=== PATIENT | male | born 1955 | race Caucasian/White ===

== ENCOUNTER 2022-08-23 13:02 | Inpatient (IN) ==
[2022-08-23] MEDS ORDERED: Propofol 10 mg/ml 100 ML BTL 1,000 MG/100 ML BTL ONE (14:24)
[2022-08-23] MEDS ORDERED: Propofol 10 MG/ML 20 ML BTL IV PUSH ONE (14:26)
[2022-08-23] MEDS ORDERED: Norepinephrine 16MCG/ML BAGD5W 4,000 MCG/250 ML BAG IV ONE (14:26)
[2022-08-23] MEDS: Propofol 10 mg/ml 100 ML BTL 1,000 MG/100 ML BTL IV SCH ×2 (14:28→22:09)
[2022-08-23] MEDS: Norepinephrine 16MCG/ML BAGD5W 4,000 MCG/250 ML BAG IV SCH ×3 (14:30→22:07)
[2022-08-23 15:13] LABS: Hematocrit 38 % (42-52); Hemoglobin 12.8 g/dL (14.0-18.0); Mean Corpuscular HGB Conc 34 g/dL (31-36); Mean Corpuscular Hemoglobin 33 pg (27-31); Mean Corpuscular Volume 99 fL (80-94); Mean Platelet Volume 8.3 fL (7.4-10.4); Platelet Count 125 10^3/uL (150-450); Red Blood Count 3.84 10^6 /uL (4.18-5.48); Red Cell Distribution Width 13 % (10-15); White Blood Count 4.3 10^3/uL (3.5-10.8)
[2022-08-23] MEDS: Pantoprazole VIAL 40 MG VIAL IV SCH (15:15)
[2022-08-23] MEDS: Chlorhexidine MOUTHWASH 0.12% 15 ML UDC SWISH SPIT SCH ×3 (15:15→22:11)
[2022-08-23 15:23] LABS: INR 1.34 (0.88-1.18)
[2022-08-23 15:57] LABS: Albumin 2.8 g/dL (3.2-5.2); Calcium 7.6 mg/dL (8.6-10.3); Magnesium 1.3 mg/dL (1.9-2.7); Potassium 3.5 mmol/L (3.5-5.0); Total Bilirubin 0.8 mg/dL (0.2-1.0)
[2022-08-23 15:58] LABS: PCO2 Arterial 38 mmHg (35-45); PO2 Arterial 87 mmHg (80-100)
[2022-08-23] MEDS: fentaNYL 100 mcg/2 ml 50 MCG/ML VIAL IV SLOW PU PRN ×2 (15:59→22:12)
[2022-08-23 16:02] LABS: Creatinine, Serum 1.13 mg/dL (0.67-1.17); Globulin 2.7 g/dL (2-4); Phosphorus 1.3 mg/dL (2.5-5.0); Total Protein 5.5 g/dL (6.4-8.9); eGFR CKD-EPI 72.1 (>60)
[2022-08-23 16:34] LABS: ABS Lymphocytes 0.5 10^3/ul (1.0-4.8); ABS Monocytes 0.6 10^3/ul (0-0.8); ABS Neutrophils 3.2 10^3/ul (1.5-7.7); Eosinophil % 0.7 %; Nucleated Red Blood Cells % 0.1
[2022-08-23 16:42] LABS: TSH Ultra Thyroid Stim Horm 7.51 mcIU/mL (0.34-5.60)
[2022-08-23 16:46] LABS: Free T4 0.87 ng/dL (0.61-1.12)
[2022-08-23] MEDS ORDERED: Vancomycin 1,000 MG in NS 0.9% 250 ml 250 ML IVPB ONE (17:35)
[2022-08-23] MEDS: Lactated Ringers 1000 ml BAG 1,000 ML IV SCH (17:42)
[2022-08-23] MEDS ORDERED: Vancomycin per Pharmacy 1 EA NOTE FOLLOW UP SCH (18:00)
[2022-08-23] MEDS ORDERED: Meropenem 1 GM PREMIX(*) 1 GM/50 ML BAG IV SCH (18:00)
[2022-08-23] MEDS ORDERED: Vancomycin 1,500 MG in NS 0.9% 250 ml 250 ML IVPB ONE (18:30)
[2022-08-23] MEDS ORDERED: Magnesium Sulf 4 GM/100 ML IV 4,000 MG/100 ML BAG IVPB ONE (18:42)
[2022-08-23] MEDS: cefTRIAXone 1 gm/50 mL D5W 1 GM/50 ML BAG IV SCH (20:02)
[2022-08-23] MEDS: Enoxaparin 40 MG/0.4 ML SYR SUBCUT SCH (20:03)
[2022-08-23] MEDS ORDERED: Potassium Phosphate IV 15 MMOL in NS 0.9% 250 ml 250 ML IVPB ONE (20:25)
[2022-08-23] MEDS: NS 0.9% IVPB SCH (21:28)
[2022-08-23] MEDS: VALPROIC ACID IVPB SCH (21:28)
[2022-08-23] MEDS: NORMOSOL-R pH 7.4 1000 mL BAG 1,000 ML IV SCH (21:40)
[2022-08-24] MEDS: Norepinephrine 16MCG/ML BAGD5W 4,000 MCG/250 ML BAG IV SCH (00:18)
[2022-08-24] MEDS: Lactated Ringers 1000 ml BAG 1,000 ML IV SCH ×4 (00:20→22:30)
[2022-08-24] MEDS: VALPROIC ACID IVPB SCH ×4 (01:35→21:43)
[2022-08-24] MEDS: NS 0.9% IVPB SCH ×4 (01:35→21:43)
[2022-08-24] MEDS: Chlorhexidine MOUTHWASH 0.12% 15 ML UDC SWISH SPIT SCH ×6 (01:42→20:41)
[2022-08-24 02:07] LABS: Anion Gap 11 mmol/L (2-11); CO2 Carbon Dioxide 19 mmol/L (22-32); Calcium 7.4 mg/dL (8.6-10.3); Chloride 108 mmol/L (101-111); Magnesium 2.2 mg/dL (1.9-2.7); Potassium 4.5 mmol/L (3.5-5.0); Sodium 138 mmol/L (135-145)
[2022-08-24 02:13] LABS: Blood Urea Nitrogen 22 mg/dL (6-24); Glucose 152 mg/dL (70-100); eGFR CKD-EPI 83.5 (>60)
[2022-08-24 02:15] LABS: Phosphorus < 1.0 mg/dL (2.5-5.0)
[2022-08-24] MEDS: NORMOSOL-R pH 7.4 1000 mL BAG 1,000 ML IV SCH (02:26)
[2022-08-24 02:43] LABS: Urine Appearance Cloudy; Urine Bilirubin Negative (Negative); Urine Blood 2+ (Negative); Urine Color Yellow; Urine Glucose Negative (Negative); Urine Ketones Negative (Negative); Urine Nitrite Negative (Negative); Urine Protein Negative (Negative); Urine Urobilinogen Negative (Negative)
[2022-08-24 02:44] LABS: Urine Bacteria Absent (Absent); Urine Red Blood Cell 3+(>10/hpf) (Absent); Urine White Blood Cell Trace(0-5/hpf) (Absent)
[2022-08-24] MEDS: Norepinephrine *QUAD STRENGTH* 16 mg/250 mL NS per protocol IV SCH ×2 (02:45→11:45)
[2022-08-24] MEDS ORDERED: NORMOSOL-R pH 7.4 1000 mL BAG 1,000 ML IV SCH (03:00)
[2022-08-24 04:12] LABS: Hematocrit 37 % (42-52); Hemoglobin 12.4 g/dL (14.0-18.0); Mean Corpuscular HGB Conc 34 g/dL (31-36); Mean Corpuscular Hemoglobin 33 pg (27-31); Mean Corpuscular Volume 97 fL (80-94); Mean Platelet Volume 8.4 fL (7.4-10.4); Platelet Count 116 10^3/uL (150-450); Red Blood Count 3.78 10^6 /uL (4.18-5.48); Red Cell Distribution Width 14 % (10-15); White Blood Count 15.2 10^3/uL (3.5-10.8)
[2022-08-24 04:26] LABS: Calcium 7.4 mg/dL (8.6-10.3); Magnesium 2.2 mg/dL (1.9-2.7); Potassium 4.5 mmol/L (3.5-5.0)
[2022-08-24 04:32] LABS: Creatinine, Serum 0.96 mg/dL (0.67-1.17); eGFR CKD-EPI 87.7 (>60)
[2022-08-24] MEDS ORDERED: Hydrocortisone INJ 100 MG/2ML 2 ML VIAL IV ONE (04:51)
[2022-08-24 05:49] LABS: Phosphorus 1.3 mg/dL (2.5-5.0)
[2022-08-24] MEDS ORDERED: Sodium Phosphate IV 15 MMOL in NS 0.9% 250 ml 250 ML IV ONE (06:13)
[2022-08-24] MEDS ORDERED: PHENYLEPHRINE DRIP IVPREMIX 50 MG/250 ML BAG IV SCH (07:00)
[2022-08-24 07:41] LABS: PCO2 Arterial 29 mmHg (35-45); PO2 Arterial 78 mmHg (80-100)
[2022-08-24] MEDS: Vancomycin 1000 MG in NS 0.9% 250 ML IVPB SCH ×2 (07:44→20:42)
[2022-08-24] MEDS ORDERED: Aspirin EC 81 mg TAB.EC (enteric coated) SCH ×2 (09:00)
[2022-08-24] MEDS: fentaNYL 100 mcg/2 ml 50 MCG/ML VIAL IV SLOW PU PRN (09:28)
[2022-08-24] MEDS ORDERED: VASOPRESSIN IVPREMIX BTL 40 UNIT/100 ML BTL IV SCH (09:30)
[2022-08-24] MEDS: VASOPRESSIN IVPREMIX BTL 40 UNIT/100 ML BTL IV SCH (09:49)
[2022-08-24] MEDS: Propofol 10 mg/ml 100 ML BTL 1,000 MG/100 ML BTL IV SCH ×2 (10:13→17:41)
[2022-08-24] MEDS: Hydrocortisone INJ 100 MG/2ML 2 ML VIAL IV SCH ×2 (12:52→20:41)
[2022-08-24] MEDS: Pantoprazole VIAL 40 MG VIAL IV SCH (13:07)
[2022-08-24] MEDS: cefTRIAXone 1 gm/50 mL D5W 1 GM/50 ML BAG IV SCH (18:18)
[2022-08-24] MEDS: Thiamine 100 MG/ML 2 ml VIAL 500 MG in NS 0.9% 250 ml 250 ML IV SCH (18:31)
[2022-08-24] MEDS: Enoxaparin 40 MG/0.4 ML SYR SUBCUT SCH (20:41)
[2022-08-24 23:09] LABS: Calcium 7.2 mg/dL (8.6-10.3); Magnesium 1.8 mg/dL (1.9-2.7); Potassium 3.7 mmol/L (3.5-5.0)
[2022-08-24 23:15] LABS: Creatinine, Serum 0.76 mg/dL (0.67-1.17); Phosphorus 1.9 mg/dL (2.5-5.0); eGFR CKD-EPI 99.7 (>60)
[2022-08-25] MEDS ORDERED: Magnesium Sulfate IV 3 GM in NS 0.9% 100 ml BAG 100 ML IVPB ONE (00:05)
[2022-08-25] MEDS ORDERED: Potassium Phosphate IV 15 MMOL in NS 0.9% 250 ml 250 ML IVPB ONE (00:05)
[2022-08-25] MEDS: NS 0.9% IVPB SCH ×4 (00:10→20:49)
[2022-08-25] MEDS: VALPROIC ACID IVPB SCH ×4 (00:10→20:49)
[2022-08-25] MEDS: Thiamine 100 MG/ML 2 ml VIAL 500 MG in NS 0.9% 250 ml 250 ML IV SCH ×3 (00:10→17:15)
[2022-08-25] MEDS: Chlorhexidine MOUTHWASH 0.12% 15 ML UDC SWISH SPIT SCH ×6 (00:11→21:07)
[2022-08-25] MEDS: Lactated Ringers 1000 ml BAG 1,000 ML IV SCH (04:47)
[2022-08-25] MEDS: Hydrocortisone INJ 100 MG/2ML 2 ML VIAL IV SCH ×3 (04:48→21:08)
[2022-08-25] MEDS: Propofol 10 mg/ml 100 ML BTL 1,000 MG/100 ML BTL IV SCH ×3 (04:54→22:43)
[2022-08-25 05:06] LABS: Hematocrit 31 % (42-52); Hemoglobin 10.4 g/dL (14.0-18.0); Mean Corpuscular HGB Conc 33 g/dL (31-36); Mean Corpuscular Hemoglobin 32 pg (27-31); Mean Corpuscular Volume 97 fL (80-94); Mean Platelet Volume 8.6 fL (7.4-10.4); Platelet Count 83 10^3/uL (150-450); Red Cell Distribution Width 14 % (10-15); White Blood Count 16.9 10^3/uL (3.5-10.8)
[2022-08-25] MEDS: VASOPRESSIN IVPREMIX BTL 40 UNIT/100 ML BTL IV SCH ×2 (05:25→21:07)
[2022-08-25 05:36] LABS: ABS Eosinophils 0.1 10^3/ul (0-0.6); ABS Lymphocytes 0.5 10^3/ul (1.0-4.8); ABS Monocytes 0.9 10^3/ul (0-0.8); ABS Neutrophils 15.4 10^3/ul (1.5-7.7); Eosinophil % 0.4 %; Lymphocyte % 2.9 %
[2022-08-25 05:46] LABS: Calcium 7.2 mg/dL (8.6-10.3); Magnesium 2.4 mg/dL (1.9-2.7); Potassium 3.7 mmol/L (3.5-5.0)
[2022-08-25 05:51] LABS: Creatinine, Serum 0.7 mg/dL (0.67-1.17); Phosphorus 2.2 mg/dL (2.5-5.0); eGFR CKD-EPI 102.3 (>60)
[2022-08-25] MEDS ORDERED: Vancomycin Trough Check NOTE FOLLOW UP ONE (07:30)
[2022-08-25] MEDS ORDERED: Potassium Phosphate IV 5 MMOL in NS 0.9% 250 ml 250 ML IVPB ONE (08:00)
[2022-08-25] MEDS: Fluoxetine LIQ 20 MG/5 ML UDC FEED TUBE SCH (08:06)
[2022-08-25] MEDS ORDERED: Dexmedetomidine 1,000 MCG in NS 0.9% 250 ml 240 ML IV SCH (10:00)
[2022-08-25] MEDS: Vancomycin 1000 MG in NS 0.9% 250 ML IVPB SCH ×2 (10:26→20:49)
[2022-08-25] MEDS ORDERED: Albumin Human 5% 12.5 GM/250 ML BTL IV ONE (11:52)
[2022-08-25] MEDS ORDERED: Propofol 10 mg/ml 100 ML BTL 1,000 MG/100 ML BTL IV SCH (12:00)
[2022-08-25 15:16] LABS: Calcium 7.1 mg/dL (8.6-10.3); Potassium 3.8 mmol/L (3.5-5.0)
[2022-08-25 15:22] LABS: Creatinine, Serum 0.74 mg/dL (0.67-1.17); eGFR CKD-EPI 100.6 (>60)
[2022-08-25] MEDS: Pantoprazole VIAL 40 MG VIAL IV SCH (15:29)
[2022-08-25] MEDS ORDERED: Lactated Ringers 1000 ml BAG 500 ML IV ONE (17:00)
[2022-08-25] MEDS: cefTRIAXone 1 gm/50 mL D5W 1 GM/50 ML BAG IV SCH (20:49)
[2022-08-25] MEDS: Enoxaparin 40 MG/0.4 ML SYR SUBCUT SCH (21:07)
[2022-08-26] MEDS: Chlorhexidine MOUTHWASH 0.12% 15 ML UDC SWISH SPIT SCH ×6 (00:28→23:10)
[2022-08-26] MEDS: NS 0.9% IVPB SCH ×4 (00:28→20:34)
[2022-08-26] MEDS: VALPROIC ACID IVPB SCH ×4 (00:28→20:34)
[2022-08-26] MEDS: Thiamine 100 MG/ML 2 ml VIAL 500 MG in NS 0.9% 250 ml 250 ML IV SCH ×3 (00:28→17:05)
[2022-08-26] MEDS: Hydrocortisone INJ 100 MG/2ML 2 ML VIAL IV SCH ×2 (04:40→17:05)
[2022-08-26 05:10] LABS: ABS Lymphocytes 0.8 10^3/ul (1.0-4.8); ABS Monocytes 0.5 10^3/ul (0-0.8); ABS Neutrophils 16.1 10^3/ul (1.5-7.7); Eosinophil % 0.1 %; Hematocrit 30 % (42-52); Hemoglobin 10.2 g/dL (14.0-18.0); Lymphocyte % 4.7 %; Mean Corpuscular HGB Conc 34 g/dL (31-36); Mean Corpuscular Hemoglobin 33 pg (27-31); Mean Corpuscular Volume 97 fL (80-94); Mean Platelet Volume 8.6 fL (7.4-10.4); Platelet Count 77 10^3/uL (150-450); Red Cell Distribution Width 14 % (10-15); White Blood Count 17.5 10^3/uL (3.5-10.8)
[2022-08-26 05:13] LABS: INR 1.26 (0.88-1.18)
[2022-08-26 05:50] LABS: Albumin 2.6 g/dL (3.2-5.2); Albumin/Globulin Ratio 1.2 (1-3); Creatinine, Serum 0.81 mg/dL (0.67-1.17); Globulin 2.2 g/dL (2-4); Magnesium 2.4 mg/dL (1.9-2.7); Potassium 3.7 mmol/L (3.5-5.0); Total Bilirubin 0.7 mg/dL (0.2-1.0); Total Protein 4.8 g/dL (6.4-8.9); eGFR CKD-EPI 97.8 (>60)
[2022-08-26] MEDS ORDERED: Potassium Chloride LIQUID 20 MEQ/15 ML LIQUID PO ONE (06:30)
[2022-08-26] MEDS: Vancomycin 1000 MG in NS 0.9% 250 ML IVPB SCH ×2 (07:32→20:34)
[2022-08-26] MEDS: Fluoxetine LIQ 20 MG/5 ML UDC FEED TUBE SCH (09:07)
[2022-08-26] MEDS: Propofol 10 mg/ml 100 ML BTL 1,000 MG/100 ML BTL IV SCH ×2 (10:21→17:59)
[2022-08-26] MEDS: Azithromycin 500 mg/250 ml NS 500 MG/250 ML BAG IVPB SCH (11:45)
[2022-08-26] MEDS: metroNIDAZOLE IV 500 MG/100ML 500 MG/100 ML BAG IVPB SCH ×2 (11:52→18:02)
[2022-08-26] MEDS ORDERED: Acetylcysteine INHALATION SOL 200 MG/ML NEB.SOLN 10 ML INH ONE (12:12)
[2022-08-26] MEDS ORDERED: Hydrocortisone INJ 100 MG/2ML 2 ML VIAL IV SCH (13:00)
[2022-08-26] MEDS: fentaNYL 100 mcg/2 ml 50 MCG/ML VIAL IV SLOW PU PRN (13:12)
[2022-08-26] MEDS ORDERED: fentaNYL 100 mcg/2 ml 50 MCG/ML VIAL IV SLOW PU ONE (14:45)
[2022-08-26] MEDS: fentaNYL 100 mcg/2 ml 50 MCG/ML VIAL ONE ×2 (14:55→14:59)
[2022-08-26] MEDS: Pantoprazole VIAL 40 MG VIAL IV SCH (14:56)
[2022-08-26] MEDS ORDERED: Norepinephrine IV 16 MG in NS 0.9% 250 ml 234 ML IV SCH (15:28)
[2022-08-26] MEDS ORDERED: Furosemide 40 mg/4 ml IV VIAL IV ONE (16:15)
[2022-08-26 17:46] LABS: Urine Appearance Cloudy; Urine Bilirubin Negative (Negative); Urine Blood 2+ (Negative); Urine Color Yellow; Urine Glucose Negative (Negative); Urine Ketones Negative (Negative); Urine Nitrite Negative (Negative); Urine Protein Negative (Negative); Urine Specific Gravity 1.013 (1.002-1.030); Urine Urobilinogen Negative (Negative)
[2022-08-26 17:51] LABS: Urine Bacteria Absent (Absent); Urine Red Blood Cell 2+(6-10/hpf) (Absent); Urine Squamous Epithelial Cell Present (Absent); Urine White Blood Cell 1+(6-10/hpf) (Absent)
[2022-08-26] MEDS: cefTRIAXone 1 gm/50 mL D5W 1 GM/50 ML BAG IV SCH (20:33)
[2022-08-26] MEDS: Enoxaparin 40 MG/0.4 ML SYR SUBCUT SCH (20:34)
[2022-08-27 01:03] LABS: Creatinine, Serum 0.85 mg/dL (0.67-1.17); Magnesium 2.2 mg/dL (1.9-2.7); Potassium 3.1 mmol/L (3.5-5.0); eGFR CKD-EPI 96.4 (>60)
[2022-08-27] MEDS: Propofol 10 mg/ml 100 ML BTL 1,000 MG/100 ML BTL IV SCH ×5 (01:19→21:25)
[2022-08-27] MEDS: NS 0.9% IVPB SCH ×2 (01:54→12:39)
[2022-08-27] MEDS: Thiamine 100 MG/ML 2 ml VIAL 500 MG in NS 0.9% 250 ml 250 ML IV SCH ×2 (01:54→10:58)
[2022-08-27] MEDS: VALPROIC ACID IVPB SCH ×2 (01:54→12:39)
[2022-08-27] MEDS: Chlorhexidine MOUTHWASH 0.12% 15 ML UDC SWISH SPIT SCH ×6 (02:47→21:29)
[2022-08-27] MEDS ORDERED: Potassium Chloride LIQUID 20 MEQ/15 ML LIQUID PEG TUBE ONE ×2 (03:51→22:06)
[2022-08-27] MEDS: metroNIDAZOLE IV 500 MG/100ML 500 MG/100 ML BAG IVPB SCH ×3 (03:57→17:36)
[2022-08-27] MEDS ORDERED: Bumetanide IV 0.25 MG/ML 4 ml VIAL (1 mg) SLOW PUSH ONE ×2 (04:00→23:00)
[2022-08-27] MEDS: Hydrocortisone INJ 100 MG/2ML 2 ML VIAL IV SCH (04:22)
[2022-08-27] MEDS: KCL 20 MEQ/100 ML IVPREMIX 20 MEQ/100 ML BAG IV SCH ×3 (04:22→22:26)
[2022-08-27 04:29] LABS: Hematocrit 30 % (42-52); Mean Corpuscular HGB Conc 33 g/dL (31-36); Mean Corpuscular Hemoglobin 32 pg (27-31); Mean Corpuscular Volume 98 fL (80-94); Mean Platelet Volume 8.6 fL (7.4-10.4); Platelet Count 76 10^3/uL (150-450); Red Blood Count 3.12 10^6 /uL (4.18-5.48); Red Cell Distribution Width 14 % (10-15); White Blood Count 16.8 10^3/uL (3.5-10.8)
[2022-08-27 04:58] LABS: Dohle Bodies Present; RBC Morphology Normal (Normal); Smudge Cells Present
[2022-08-27 04:59] LABS: ABS Lymphocytes 0.6 10^3/ul (1.0-4.8); ABS Monocytes 0.9 10^3/ul (0-0.8); ABS Neutrophils 15.2 10^3/ul (1.5-7.7); Lymphocyte % 3.7 %
[2022-08-27 05:17] LABS: Calcium 6.8 mg/dL (8.6-10.3); Creatinine, Serum 0.81 mg/dL (0.67-1.17); Magnesium 2.2 mg/dL (1.9-2.7); Potassium 3.2 mmol/L (3.5-5.0); eGFR CKD-EPI 97.8 (>60)
[2022-08-27] MEDS: fentaNYL 100 mcg/2 ml 50 MCG/ML VIAL IV SLOW PU PRN ×2 (05:23→21:44)
[2022-08-27] MEDS ORDERED: Vancomycin Trough Check NOTE FOLLOW UP ONE (07:30)
[2022-08-27] MEDS: Fluoxetine LIQ 20 MG/5 ML UDC FEED TUBE SCH (09:19)
[2022-08-27] MEDS: Valproic Acid LIQ 250 MG/5 ML UDC PO SCH ×3 (09:20→21:04)
[2022-08-27] MEDS ORDERED: Furosemide 40 mg/4 ml IV VIAL IV SLOW PU ONE (09:27)
[2022-08-27] MEDS: Azithromycin 500 mg/250 ml NS 500 MG/250 ML BAG IVPB SCH (09:37)
[2022-08-27] MEDS ORDERED: Rocuronium 50 mg VIAL 10 mg/ml 5 ml VIAL (50 mg) ONE (09:53)
[2022-08-27] MEDS: Potassium Chloride LIQUID 20 MEQ/15 ML LIQUID PO SCH ×2 (10:44→13:14)
[2022-08-27 11:05] LABS: Albumin 2.5 g/dL (3.2-5.2); Albumin/Globulin Ratio 1.1 (1-3); Calcium 6.6 mg/dL (8.6-10.3); Creatinine, Serum 0.82 mg/dL (0.67-1.17); Globulin 2.2 g/dL (2-4); Potassium 3.4 mmol/L (3.5-5.0); Total Bilirubin 0.5 mg/dL (0.2-1.0); Total Protein 4.7 g/dL (6.4-8.9); eGFR CKD-EPI 97.5 (>60)
[2022-08-27] MEDS: Vancomycin 1000 MG in NS 0.9% 250 ML IVPB SCH (12:39)
[2022-08-27 13:06] LABS: PCO2 Arterial 45 mmHg (35-45)
[2022-08-27 13:24] LABS: PO2 Arterial 59 mmHg (80-100)
[2022-08-27 15:02] LABS: PCO2 Arterial 35 mmHg (35-45); PO2 Arterial 94 mmHg (80-100)
[2022-08-27] MEDS: Pantoprazole VIAL 40 MG VIAL IV SCH (15:15)
[2022-08-27 18:43] LABS: PCO2 Arterial 42 mmHg (35-45); PO2 Arterial 62 mmHg (80-100)
[2022-08-27 19:52] LABS: Creatinine, Serum 0.82 mg/dL (0.67-1.17); eGFR CKD-EPI 97.5 (>60)
[2022-08-27] MEDS: cefTRIAXone 1 gm/50 mL D5W 1 GM/50 ML BAG IV SCH (20:24)
[2022-08-27] MEDS: Enoxaparin 40 MG/0.4 ML SYR SUBCUT SCH ×2 (20:28→21:17)
[2022-08-27 22:14] LABS: PCO2 Arterial 45 mmHg (35-45); PO2 Arterial 65 mmHg (80-100)
[2022-08-27 22:22] LABS: Calcium 6.9 mg/dL (8.6-10.3); Potassium 2.9 mmol/L (3.5-5.0)
[2022-08-27 22:28] LABS: Creatinine, Serum 0.78 mg/dL (0.67-1.17)
[2022-08-27] MEDS ORDERED: Bumetanide IV 10 MG in Premix IV 0 ML IV SCH (23:00)
[2022-08-28] MEDS: KCL 20 MEQ/100 ML IVPREMIX 20 MEQ/100 ML BAG IV SCH (00:36)
[2022-08-28] MEDS ORDERED: Potassium Chloride LIQUID 20 MEQ/15 ML LIQUID PO ONE (00:39)
[2022-08-28 00:50] LABS: PCO2 Arterial 47 mmHg (35-45); PO2 Arterial 76 mmHg (80-100)
[2022-08-28] MEDS: Propofol 10 mg/ml 100 ML BTL 1,000 MG/100 ML BTL IV SCH ×5 (01:06→22:05)
[2022-08-28] MEDS ORDERED: Bumetanide IV 10 MG in Premix IV 0 ML IV SCH ×2 (01:21→01:24)
[2022-08-28] MEDS: Chlorhexidine MOUTHWASH 0.12% 15 ML UDC SWISH SPIT SCH ×6 (01:51→20:33)
[2022-08-28] MEDS ORDERED: Bumetanide IV 0.25 MG/ML 4 ml VIAL (1 mg) SLOW PUSH ONE ×2 (02:00→09:34)
[2022-08-28] MEDS: Valproic Acid LIQ 250 MG/5 ML UDC PO SCH ×4 (02:58→20:30)
[2022-08-28] MEDS: metroNIDAZOLE IV 500 MG/100ML 500 MG/100 ML BAG IVPB SCH ×3 (03:08→18:25)
[2022-08-28 03:31] LABS: PCO2 Arterial 50 mmHg (35-45); PO2 Arterial 78 mmHg (80-100)
[2022-08-28 03:46] LABS: Hematocrit 37 % (42-52); Hemoglobin 12.8 g/dL (14.0-18.0); Mean Corpuscular HGB Conc 35 g/dL (31-36); Mean Corpuscular Hemoglobin 34 pg (27-31); Mean Corpuscular Volume 97 fL (80-94); Mean Platelet Volume 8.3 fL (7.4-10.4); Platelet Count 77 10^3/uL (150-450); Red Blood Count 3.79 10^6 /uL (4.18-5.48); Red Cell Distribution Width 13 % (10-15); White Blood Count 9.8 10^3/uL (3.5-10.8)
[2022-08-28 04:21] LABS: Calcium 7.5 mg/dL (8.6-10.3); Potassium 4.6 mmol/L (3.5-5.0)
[2022-08-28] MEDS: Artificial Tear OPHTH.OINT 3.5 GM BOTH EYES PRN (04:26)
[2022-08-28 04:35] LABS: Creatinine, Serum 0.79 mg/dL (0.67-1.17); eGFR CKD-EPI 98.6 (>60)
[2022-08-28] MEDS: Norepinephrine 16MCG/ML BAGD5W 4,000 MCG/250 ML BAG IV SCH ×2 (04:45→23:08)
[2022-08-28] MEDS ORDERED: Norepinephrine 16MCG/ML BAGD5W 4,000 MCG/250 ML BAG IV ONE ×2 (04:46→04:47)
[2022-08-28] MEDS ORDERED: fentaNYL 100 mcg/2 ml 50 MCG/ML VIAL IV SLOW PU ONE (05:14)
[2022-08-28 05:16] LABS: ABS Nucleated RBC 0.2 10^3/ul; Nucleated Red Blood Cells % 1.6
[2022-08-28] MEDS: fentaNYL 100 mcg/2 ml 50 MCG/ML VIAL ONE ×2 (05:25→05:27)
[2022-08-28 05:37] LABS: RBC Morphology Normal (Normal)
[2022-08-28 05:39] LABS: Dohle Bodies Present; Smudge Cells Present
[2022-08-28] MEDS ORDERED: Norepinephrine 16MCG/ML BAGD5W 4,000 MCG/250 ML BAG IV SCH (06:00)
[2022-08-28 06:29] LABS: PCO2 Arterial 51 mmHg (35-45); PO2 Arterial 102 mmHg (80-100)
[2022-08-28 07:16] LABS: Anion Gap 8 mmol/L (2-11); Blood Urea Nitrogen 25 mg/dL (6-24); CO2 Carbon Dioxide 33 mmol/L (22-32); Calcium 7.2 mg/dL (8.6-10.3); Chloride 104 mmol/L (101-111); Creatinine, Serum 0.79 mg/dL (0.67-1.17); Glucose 110 mg/dL (70-100); Sodium 145 mmol/L (135-145); eGFR CKD-EPI 98.6 (>60)
[2022-08-28] MEDS: Fluoxetine LIQ 20 MG/5 ML UDC FEED TUBE SCH (07:50)
[2022-08-28 08:43] LABS: Potassium, Whole Blood 3.5 mmol/L (3.4-4.5)
[2022-08-28] MEDS: Potassium Chloride LIQUID 20 MEQ/15 ML LIQUID PO SCH ×2 (09:57→13:33)
[2022-08-28] MEDS ORDERED: Piperacillin/Tazobac ADVAN 3.375 GM in NS 0.9% 100 ml BAG 100 ML IV SCH (10:00)
[2022-08-28] MEDS: Cefepime 1 GM in Dextrose 1 GM/50 ML BAG IV SCH ×2 (11:02→20:34)
[2022-08-28] MEDS: fentaNYL 100 mcg/2 ml 50 MCG/ML VIAL IV SLOW PU PRN ×3 (12:21→22:12)
[2022-08-28] MEDS: Azithromycin 500 mg/250 ml NS 500 MG/250 ML BAG IVPB SCH (12:24)
[2022-08-28 12:48] LABS: PCO2 Arterial 48 mmHg (35-45); PO2 Arterial 77 mmHg (80-100)
[2022-08-28] MEDS: Pantoprazole VIAL 40 MG VIAL IV SCH (15:09)
[2022-08-28 16:38] LABS: PCO2 Arterial 62 mmHg (35-45); PO2 Arterial 124 mmHg (80-100)
[2022-08-28] MEDS ORDERED: Dextrose 50% Syringe 50 ml 25 GM/50 ML SYRINGE IV PUSH PRN (17:05)
[2022-08-28 17:11] LABS: Blood Urea Nitrogen 27 mg/dL (6-24); CO2 Carbon Dioxide 37 mmol/L (22-32); Calcium 7.3 mg/dL (8.6-10.3); Chloride 99 mmol/L (101-111); Creatinine, Serum 0.92 mg/dL (0.67-1.17); Glucose 216 mg/dL (70-100); Sodium 142 mmol/L (135-145); eGFR CKD-EPI 92.3 (>60)
[2022-08-28 17:22] LABS: Anion Gap 6 mmol/L (2-11)
[2022-08-28 18:03] LABS: Potassium, Whole Blood 4.2 mmol/L (3.4-4.5)
[2022-08-28 20:27] LABS: ALT 33 U/L (7-52); Albumin 2.6 g/dL (3.2-5.2); Albumin/Globulin Ratio 0.9 (1-3); Alkaline Phosphatase 57 U/L (35-149); Cholesterol 111 mg/dL; Globulin 2.8 g/dL (2-4); HDL Cholesterol 9.9 mg/dL; Total Protein 5.4 g/dL (6.4-8.9); Triglycerides 700 mg/dL
[2022-08-28] MEDS: Enoxaparin 40 MG/0.4 ML SYR SUBCUT SCH (20:33)
[2022-08-28 20:42] LABS: LDL Cholesterol Direct 46 mg/dL
[2022-08-28] MEDS ORDERED: Midazolam IV for DRIP 100 MG in NS 0.9% IV SCH (21:45)
[2022-08-28 21:48] LABS: Lipase 35 U/L (11.0-82.0)
[2022-08-28] MEDS ORDERED: Midazolam 2 mg/2 ml VIAL 1 mg/ml 2 ml VIAL (2 mg) IV SLOW PU PRN (21:51)
[2022-08-28] MEDS ORDERED: Midazolam 50 MG PREMIX IV DRIP 50 ML IV SCH (22:00)
[2022-08-28] MEDS ORDERED: fentaNYL INFUSION 50 mcg/mL VL 2,500 MCG/50 ML VIAL IV SCH (22:00)
[2022-08-28] MEDS: Dexmedetomidine 1,000 MCG in NS 0.9% 250 ml 240 ML IV SCH (22:10)
[2022-08-28 22:37] LABS: Magnesium 1.9 mg/dL (1.9-2.7)
[2022-08-29] MEDS ORDERED: Magnesium Sulfate 2 gm BAG 2 GM/50 ML BAG IVPB ONE (00:31)
[2022-08-29] MEDS: Chlorhexidine MOUTHWASH 0.12% 15 ML UDC SWISH SPIT SCH ×6 (02:21→21:35)
[2022-08-29] MEDS: Valproic Acid LIQ 250 MG/5 ML UDC PO SCH ×4 (02:21→20:34)
[2022-08-29] MEDS: metroNIDAZOLE IV 500 MG/100ML 500 MG/100 ML BAG IVPB SCH ×3 (02:25→17:32)
[2022-08-29 02:40] LABS: High Sensitivity Troponin 1 Hr 19 pg/mL (<20)
[2022-08-29 05:44] LABS: Hematocrit 30 % (42-52); Hemoglobin 10.1 g/dL (14.0-18.0); Mean Corpuscular HGB Conc 33 g/dL (31-36); Mean Corpuscular Hemoglobin 33 pg (27-31); Mean Corpuscular Volume 98 fL (80-94); Mean Platelet Volume 8.6 fL (7.4-10.4); Platelet Count 89 10^3/uL (150-450); Red Blood Count 3.09 10^6 /uL (4.18-5.48); Red Cell Distribution Width 14 % (10-15); White Blood Count 10.2 10^3/uL (3.5-10.8)
[2022-08-29 05:54] LABS: Creatinine, Serum 0.79 mg/dL (0.67-1.17); Magnesium 2.5 mg/dL (1.9-2.7); Potassium 3.5 mmol/L (3.5-5.0); eGFR CKD-EPI 98.6 (>60)
[2022-08-29 05:58] LABS: ABS Eosinophils 0.2 10^3/ul (0-0.6); ABS Monocytes 0.4 10^3/ul (0-0.8); ABS Neutrophils 8.7 10^3/ul (1.5-7.7); Eosinophil % 2.2 %; Lymphocyte % 9.3 %; Nucleated Red Blood Cells % 0.2
[2022-08-29] MEDS ORDERED: Potassium Chloride LIQUID 20 MEQ/15 ML LIQUID PO ONE (06:33)
[2022-08-29] MEDS ORDERED: KCL 20 MEQ/100 ML IVPREMIX 20 MEQ/100 ML BAG IV ONE (06:33)
[2022-08-29] MEDS: fentaNYL 100 mcg/2 ml 50 MCG/ML VIAL IV SLOW PU PRN ×2 (07:16→08:45)
[2022-08-29] MEDS: Cefepime 1 GM in Dextrose 1 GM/50 ML BAG IV SCH ×2 (07:25→21:36)
[2022-08-29] MEDS: Fluoxetine LIQ 20 MG/5 ML UDC FEED TUBE SCH (07:28)
[2022-08-29] MEDS: Azithromycin 500 mg/250 ml NS 500 MG/250 ML BAG IVPB SCH (08:14)
[2022-08-29 10:07] LABS: PCO2 Arterial 48 mmHg (35-45); PO2 Arterial 88 mmHg (80-100)
[2022-08-29] MEDS ORDERED: Furosemide 40 mg/4 ml IV VIAL IV ONE (11:20)
[2022-08-29 14:01] LABS: PCO2 Arterial 49 mmHg (35-45); PO2 Arterial 138 mmHg (80-100)
[2022-08-29] MEDS: Pantoprazole VIAL 40 MG VIAL IV SCH (14:17)
[2022-08-29 18:09] LABS: PCO2 Arterial 49 mmHg (35-45); PO2 Arterial 100 mmHg (80-100)
[2022-08-29 18:30] LABS: Calcium 7.3 mg/dL (8.6-10.3); Creatinine, Serum 0.81 mg/dL (0.67-1.17); Potassium 4.1 mmol/L (3.5-5.0); eGFR CKD-EPI 97.8 (>60)
[2022-08-29] MEDS: Dexmedetomidine 1,000 MCG in NS 0.9% 250 ml 240 ML IV SCH (21:35)
[2022-08-29] MEDS: Enoxaparin 40 MG/0.4 ML SYR SUBCUT SCH (21:36)
[2022-08-30] MEDS: Valproic Acid LIQ 250 MG/5 ML UDC PO SCH ×4 (01:41→21:20)
[2022-08-30] MEDS: Chlorhexidine MOUTHWASH 0.12% 15 ML UDC SWISH SPIT SCH ×6 (01:41→21:21)
[2022-08-30] MEDS: metroNIDAZOLE IV 500 MG/100ML 500 MG/100 ML BAG IVPB SCH (02:51)
[2022-08-30 05:38] LABS: Hematocrit 31 % (42-52); Hemoglobin 10.3 g/dL (14.0-18.0); Mean Corpuscular HGB Conc 33 g/dL (31-36); Mean Corpuscular Hemoglobin 33 pg (27-31); Mean Corpuscular Volume 99 fL (80-94); Mean Platelet Volume 8.4 fL (7.4-10.4); Platelet Count 102 10^3/uL (150-450); Red Blood Count 3.17 10^6 /uL (4.18-5.48); Red Cell Distribution Width 14 % (10-15)
[2022-08-30 06:26] LABS: Calcium 7.3 mg/dL (8.6-10.3); Creatinine, Serum 0.76 mg/dL (0.67-1.17); Magnesium 2.2 mg/dL (1.9-2.7); Potassium 3.7 mmol/L (3.5-5.0); eGFR CKD-EPI 99.7 (>60)
[2022-08-30 06:36] LABS: RBC Morphology Normal (Normal)
[2022-08-30] MEDS ORDERED: Potassium Chloride LIQUID 20 MEQ/15 ML LIQUID PEG TUBE ONE (07:12)
[2022-08-30] MEDS ORDERED: Potassium Chloride LIQUID 20 MEQ/15 ML LIQUID PO ONE (07:12)
[2022-08-30 07:37] LABS: ABS Eosinophils 0.2 10^3/ul (0-0.6); ABS Lymphocytes 1.4 10^3/ul (1.0-4.8); ABS Monocytes 0.6 10^3/ul (0-0.8); ABS Neutrophils 7.8 10^3/ul (1.5-7.7); Lymphocyte % 14.5 %
[2022-08-30] MEDS: fentaNYL 100 mcg/2 ml 50 MCG/ML VIAL IV SLOW PU PRN ×4 (08:02→17:31)
[2022-08-30] MEDS: Cefepime 1 GM in Dextrose 1 GM/50 ML BAG IV SCH ×2 (08:02→21:21)
[2022-08-30] MEDS: Multivitamins ADULT w/MIN LIQ 15 ML UDC PO SCH (08:04)
[2022-08-30] MEDS: Fluoxetine LIQ 20 MG/5 ML UDC FEED TUBE SCH (08:04)
[2022-08-30] MEDS ORDERED: Lidocaine 1% MPF 5 ML VIAL INJ ONE (08:40)
[2022-08-30 08:42] LABS: PCO2 Arterial 51 mmHg (35-45); PO2 Arterial 118 mmHg (80-100)
[2022-08-30] MEDS: Artificial Tear OPHTH.OINT 3.5 GM BOTH EYES PRN (08:59)
[2022-08-30] MEDS ORDERED: Lactated Ringers 1000 ml BAG 1,000 ML IV SCH (09:00)
[2022-08-30] MEDS ORDERED: Lactated Ringers 1000 ml BAG 500 ML IV SCH (09:00)
[2022-08-30 13:07] LABS: PCO2 Arterial 52 mmHg (35-45); PO2 Arterial 107 mmHg (80-100)
[2022-08-30] MEDS: Pantoprazole VIAL 40 MG VIAL IV SCH (13:34)
[2022-08-30 16:51] LABS: PCO2 Arterial 47 mmHg (35-45); PO2 Arterial 69 mmHg (80-100)
[2022-08-30] MEDS: Dexmedetomidine 1,000 MCG in NS 0.9% 250 ml 240 ML IV SCH (21:00)
[2022-08-30] MEDS: Enoxaparin 40 MG/0.4 ML SYR SUBCUT SCH (21:20)
[2022-08-31] MEDS: Chlorhexidine MOUTHWASH 0.12% 15 ML UDC SWISH SPIT SCH ×4 (02:00→14:20)
[2022-08-31] MEDS: Valproic Acid LIQ 250 MG/5 ML UDC PO SCH ×4 (02:00→20:10)
[2022-08-31 04:57] LABS: Hematocrit 32 % (42-52); Hemoglobin 10.8 g/dL (14.0-18.0); Mean Corpuscular HGB Conc 34 g/dL (31-36); Mean Corpuscular Hemoglobin 33 pg (27-31); Mean Corpuscular Volume 97 fL (80-94); Mean Platelet Volume 8.2 fL (7.4-10.4); Platelet Count 128 10^3/uL (150-450); Red Blood Count 3.26 10^6 /uL (4.18-5.48); Red Cell Distribution Width 14 % (10-15); White Blood Count 10.6 10^3/uL (3.5-10.8)
[2022-08-31 05:26] LABS: Calcium 7.5 mg/dL (8.6-10.3); Creatinine, Serum 0.64 mg/dL (0.67-1.17); Phosphorus 2.2 mg/dL (2.5-5.0); Potassium 4.2 mmol/L (3.5-5.0); eGFR CKD-EPI 105.1 (>60)
[2022-08-31 05:35] LABS: ABS Basophils 0.1 10^3/ul (0-0.2); ABS Eosinophils 0.1 10^3/ul (0-0.6); ABS Lymphocytes 1.6 10^3/ul (1.0-4.8); ABS Monocytes 0.8 10^3/ul (0-0.8); Eosinophil % 1.2 %; Lymphocyte % 15.1 %; Nucleated Red Blood Cells % 0.1
[2022-08-31] MEDS ORDERED: hydrALAZINE 20 mg/ml 1 ML Vial IV IV SLOW PU PRN (05:39)
[2022-08-31] MEDS ORDERED: hydrALAZINE 20 mg/ml 1 ML Vial IV ONE (05:43)
[2022-08-31] MEDS ORDERED: Lactated Ringers 1000 ml BAG 500 ML IV ONE (06:37)
[2022-08-31] MEDS: Fluoxetine LIQ 20 MG/5 ML UDC FEED TUBE SCH (08:02)
[2022-08-31] MEDS: Cefepime 1 GM in Dextrose 1 GM/50 ML BAG IV SCH ×2 (08:02→20:36)
[2022-08-31] MEDS: Multivitamins ADULT w/MIN LIQ 15 ML UDC PO SCH (08:02)
[2022-08-31 09:07] LABS: PCO2 Arterial 41 mmHg (35-45); PO2 Arterial 65 mmHg (80-100)
[2022-08-31] MEDS ORDERED: Furosemide 20 mg/2 ml IV VIAL IV ONE (09:17)
[2022-08-31] MEDS ORDERED: Norepinephrine 16MCG/ML BAGD5W 4,000 MCG/250 ML BAG IV ONE (09:27)
[2022-08-31] MEDS: fentaNYL 100 mcg/2 ml 50 MCG/ML VIAL IV SLOW PU PRN ×2 (09:37→10:38)
[2022-08-31] MEDS ORDERED: Bumetanide IV 0.25 MG/ML 4 ml VIAL (1 mg) SLOW PUSH ONE (10:00)
[2022-08-31] MEDS ORDERED: Norepinephrine 16MCG/ML BAGD5W 4,000 MCG/250 ML BAG IV SCH (10:00)
[2022-08-31] MEDS ORDERED: Dexmedetomidine 200 mcg/2 ml 2 ml VIAL (200 mcg) ONE (11:45)
[2022-08-31] MEDS ORDERED: Dexmedetomidine 1,000 MCG in NS 0.9% 250 ml 240 ML IV SCH (12:00)
[2022-08-31 14:19] LABS: PCO2 Arterial 50 mmHg (35-45); PO2 Arterial 148 mmHg (80-100)
[2022-08-31] MEDS: Pantoprazole VIAL 40 MG VIAL IV SCH (14:20)
[2022-08-31] MEDS: Bacitracin OINTMENT TUBE TOPICAL SCH (16:51)
[2022-08-31] MEDS: Enoxaparin 40 MG/0.4 ML SYR SUBCUT SCH (20:11)
[2022-08-31 20:42] LABS: Calcium 8.2 mg/dL (8.6-10.3); Creatinine, Serum 0.78 mg/dL (0.67-1.17); Phosphorus 2.9 mg/dL (2.5-5.0); Potassium 3.9 mmol/L (3.5-5.0)
[2022-08-31] MEDS ORDERED: Furosemide 40 mg/4 ml IV VIAL IV SLOW PU ONE (23:24)
[2022-08-31] MEDS: Saline FLUSH-CENTRAL 10 ML SYRINGE CENT\\PICC SCH (23:40)
[2022-09-01] MEDS: Valproic Acid LIQ 250 MG/5 ML UDC PO SCH ×4 (03:11→20:35)
[2022-09-01] MEDS: Acetaminophen IV 1 GM/100ML 1,000 MG/100 ML BAG IV PRN (03:11)
[2022-09-01 04:43] LABS: Hematocrit 33 % (42-52); Hemoglobin 11.3 g/dL (14.0-18.0); Mean Corpuscular HGB Conc 35 g/dL (31-36); Mean Corpuscular Hemoglobin 33 pg (27-31); Mean Corpuscular Volume 95 fL (80-94); Mean Platelet Volume 7.7 fL (7.4-10.4); Platelet Count 148 10^3/uL (150-450); Red Blood Count 3.44 10^6 /uL (4.18-5.48); Red Cell Distribution Width 14 % (10-15); White Blood Count 14.3 10^3/uL (3.5-10.8)
[2022-09-01 05:18] LABS: Calcium 7.9 mg/dL (8.6-10.3); Creatinine, Serum 0.8 mg/dL (0.67-1.17); Magnesium 1.9 mg/dL (1.9-2.7); Potassium 3.2 mmol/L (3.5-5.0); eGFR CKD-EPI 98.2 (>60)
[2022-09-01 05:53] LABS: ABS Eosinophils 0.1 10^3/ul (0-0.6); ABS Lymphocytes 1.7 10^3/ul (1.0-4.8); ABS Monocytes 0.6 10^3/ul (0-0.8); ABS Neutrophils 11.8 10^3/ul (1.5-7.7); Lymphocyte % 11.7 %
[2022-09-01] MEDS ORDERED: KCL 20 MEQ/100 ML IVPREMIX 20 MEQ/100 ML BAG IV ONE (05:56)
[2022-09-01] MEDS ORDERED: Potassium Chloride LIQUID 20 MEQ/15 ML LIQUID PO ONE (05:56)
[2022-09-01] MEDS: Bacitracin OINTMENT TUBE TOPICAL SCH (08:30)
[2022-09-01] MEDS: Multivitamins ADULT w/MIN LIQ 15 ML UDC PO SCH (08:30)
[2022-09-01] MEDS: Fluoxetine LIQ 20 MG/5 ML UDC FEED TUBE SCH (08:37)
[2022-09-01] MEDS ORDERED: Polyethylene Glycol 3350 17 GM PACKET PO SCH (09:00)
[2022-09-01] MEDS: Cefepime 1 GM in Dextrose 1 GM/50 ML BAG IV SCH ×2 (10:51→20:43)
[2022-09-01] MEDS ORDERED: Furosemide 20 mg/2 ml IV VIAL IV SLOW PU ONE (11:08)
[2022-09-01] MEDS: Saline FLUSH-CENTRAL 10 ML SYRINGE CENT\\PICC SCH ×2 (11:40→22:55)
[2022-09-01] MEDS ORDERED: Vancomycin per Pharmacy 1 EA NOTE FOLLOW UP SCH (12:00)
[2022-09-01] MEDS ORDERED: Vancomycin 1,000 MG in NS 0.9% 250 ml 250 ML IVPB ONE (12:00)
[2022-09-01 13:15] LABS: Urine Appearance Clear; Urine Bilirubin Negative (Negative); Urine Blood 1+ (Negative); Urine Color Straw; Urine Glucose Negative (Negative); Urine Ketones Negative (Negative); Urine Nitrite Negative (Negative); Urine Protein Negative (Negative); Urine Specific Gravity 1.005 (1.002-1.030); Urine Urobilinogen Negative (Negative)
[2022-09-01 13:21] LABS: Urine Bacteria 1+ (Absent); Urine Red Blood Cell Trace(0-2/hpf) (Absent); Urine White Blood Cell Trace(0-5/hpf) (Absent)
[2022-09-01] MEDS: Pantoprazole VIAL 40 MG VIAL IV SCH (13:44)
[2022-09-01] MEDS: Enoxaparin 40 MG/0.4 ML SYR SUBCUT SCH (20:43)
[2022-09-01] MEDS: Vancomycin 1,250 MG in NS 0.9% 250 ml 250 ML IVPB SCH (22:56)
[2022-09-02] MEDS: Valproic Acid LIQ 250 MG/5 ML UDC PO SCH ×4 (02:35→20:44)
[2022-09-02 05:54] LABS: ABS Basophils 0.1 10^3/ul (0-0.2); ABS Eosinophils 0.1 10^3/ul (0-0.6); ABS Lymphocytes 1.6 10^3/ul (1.0-4.8); ABS Monocytes 1.2 10^3/ul (0-0.8); Hematocrit 33 % (42-52); Hemoglobin 10.9 g/dL (14.0-18.0); Lymphocyte % 12.4 %; Mean Corpuscular HGB Conc 33 g/dL (31-36); Mean Corpuscular Hemoglobin 33 pg (27-31); Mean Corpuscular Volume 98 fL (80-94); Mean Platelet Volume 7.9 fL (7.4-10.4); Nucleated Red Blood Cells % 0.1; Platelet Count 162 10^3/uL (150-450); Red Blood Count 3.35 10^6 /uL (4.18-5.48); Red Cell Distribution Width 14 % (10-15); White Blood Count 13.1 10^3/uL (3.5-10.8)
[2022-09-02 06:38] LABS: Calcium 7.6 mg/dL (8.6-10.3); Creatinine, Serum 0.73 mg/dL (0.67-1.17); Magnesium 2.3 mg/dL (1.9-2.7); Potassium 3.3 mmol/L (3.5-5.0)
[2022-09-02] MEDS: Fluoxetine LIQ 20 MG/5 ML UDC FEED TUBE SCH (08:38)
[2022-09-02] MEDS: Multivitamins ADULT w/MIN LIQ 15 ML UDC PO SCH (08:38)
[2022-09-02] MEDS: Cefepime 1 GM in Dextrose 1 GM/50 ML BAG IV SCH ×2 (08:39→20:42)
[2022-09-02] MEDS: Bacitracin OINTMENT TUBE TOPICAL SCH (08:40)
[2022-09-02] MEDS: Polyethylene Glycol 3350 17 GM PACKET PO SCH (08:46)
[2022-09-02] MEDS ORDERED: Furosemide 40 mg/4 ml IV VIAL IV ONE (09:52)
[2022-09-02] MEDS: KCL 20 MEQ/100 ML IVPREMIX 20 MEQ/100 ML BAG IV SCH ×2 (09:57→12:41)
[2022-09-02] MEDS ORDERED: Propofol 10 MG/ML 20 ML BTL ONE (11:12)
[2022-09-02] MEDS: Saline FLUSH-CENTRAL 10 ML SYRINGE CENT\\PICC SCH (12:41)
[2022-09-02] MEDS: Vancomycin 1,250 MG in NS 0.9% 250 ml 250 ML IVPB SCH (12:49)
[2022-09-02] MEDS: Pantoprazole VIAL 40 MG VIAL IV SCH (15:22)
[2022-09-02] MEDS: Enoxaparin 40 MG/0.4 ML SYR SUBCUT SCH (20:44)
[2022-09-03] MEDS: Saline FLUSH-CENTRAL 10 ML SYRINGE CENT\\PICC SCH ×3 (00:09→22:15)
[2022-09-03] MEDS: Vancomycin 1,250 MG in NS 0.9% 250 ml 250 ML IVPB SCH ×2 (00:11→11:21)
[2022-09-03] MEDS: Valproic Acid LIQ 250 MG/5 ML UDC PO SCH ×4 (02:29→20:16)
[2022-09-03 06:21] LABS: ABS Eosinophils 0.1 10^3/ul (0-0.6); ABS Lymphocytes 1.7 10^3/ul (1.0-4.8); ABS Monocytes 1.3 10^3/ul (0-0.8); ABS Neutrophils 8.9 10^3/ul (1.5-7.7); Eosinophil % 1.1 %; Hematocrit 32 % (42-52); Hemoglobin 10.7 g/dL (14.0-18.0); Lymphocyte % 14.3 %; Mean Corpuscular HGB Conc 34 g/dL (31-36); Mean Corpuscular Hemoglobin 33 pg (27-31); Mean Corpuscular Volume 97 fL (80-94); Mean Platelet Volume 7.9 fL (7.4-10.4); Platelet Count 217 10^3/uL (150-450); Red Blood Count 3.28 10^6 /uL (4.18-5.48); Red Cell Distribution Width 14 % (10-15); White Blood Count 12.1 10^3/uL (3.5-10.8)
[2022-09-03 06:48] LABS: Calcium 7.9 mg/dL (8.6-10.3); Creatinine, Serum 0.72 mg/dL (0.67-1.17); Magnesium 2.2 mg/dL (1.9-2.7); Potassium 3.5 mmol/L (3.5-5.0); Vancomycin Trough 23.5 mcg/mL; eGFR CKD-EPI 101.4 (>60)
[2022-09-03] MEDS: KCL 20 MEQ/100 ML IVPREMIX 20 MEQ/100 ML BAG IV SCH ×2 (09:03→11:11)
[2022-09-03] MEDS: Fluoxetine LIQ 20 MG/5 ML UDC FEED TUBE SCH (09:11)
[2022-09-03] MEDS: Polyethylene Glycol 3350 17 GM PACKET PO SCH (09:12)
[2022-09-03] MEDS ORDERED: Vancomycin Trough Check NOTE FOLLOW UP ONE (10:30)
[2022-09-03] MEDS: Bacitracin OINTMENT TUBE TOPICAL SCH (11:10)
[2022-09-03] MEDS: Cefepime 1 GM in Dextrose 1 GM/50 ML BAG IV SCH ×2 (11:10→20:35)
[2022-09-03] MEDS: Multivitamins ADULT w/MIN LIQ 15 ML UDC PO SCH (12:24)
[2022-09-03] MEDS: Pantoprazole VIAL 40 MG VIAL IV SCH (14:19)
[2022-09-03] MEDS: Vancomycin 1,000 MG in NS 0.9% 250 ml 250 ML IVPB SCH (20:16)
[2022-09-03] MEDS: Enoxaparin 40 MG/0.4 ML SYR SUBCUT SCH (20:35)
[2022-09-04] MEDS: Valproic Acid LIQ 250 MG/5 ML UDC PO SCH ×5 (02:11→19:59)
[2022-09-04 06:15] LABS: ABS Eosinophils 0.2 10^3/ul (0-0.6); ABS Lymphocytes 1.4 10^3/ul (1.0-4.8); ABS Monocytes 1.2 10^3/ul (0-0.8); ABS Neutrophils 7.6 10^3/ul (1.5-7.7); Eosinophil % 1.5 %; Hematocrit 30 % (42-52); Hemoglobin 9.9 g/dL (14.0-18.0); Lymphocyte % 13.1 %; Mean Corpuscular HGB Conc 34 g/dL (31-36); Mean Corpuscular Hemoglobin 33 pg (27-31); Mean Corpuscular Volume 98 fL (80-94); Platelet Count 255 10^3/uL (150-450); Red Cell Distribution Width 14 % (10-15); White Blood Count 10.4 10^3/uL (3.5-10.8)
[2022-09-04 06:42] LABS: Blood Urea Nitrogen 21 mg/dL (6-24); CO2 Carbon Dioxide 35 mmol/L (22-32); Calcium 7.7 mg/dL (8.6-10.3); Chloride 98 mmol/L (101-111); Creatinine, Serum 0.71 mg/dL (0.67-1.17); Glucose 108 mg/dL (70-100); Potassium 3.9 mmol/L (3.5-5.0); Sodium 133 mmol/L (135-145); eGFR CKD-EPI 101.8 (>60)
[2022-09-04] MEDS: Multivitamins ADULT w/MIN LIQ 15 ML UDC PO SCH ×2 (07:55→12:17)
[2022-09-04] MEDS: Cefepime 1 GM in Dextrose 1 GM/50 ML BAG IV SCH ×2 (07:55→21:21)
[2022-09-04] MEDS: Fluoxetine LIQ 20 MG/5 ML UDC FEED TUBE SCH ×2 (07:55→12:15)
[2022-09-04] MEDS: Bacitracin OINTMENT TUBE TOPICAL SCH (08:00)
[2022-09-04] MEDS: Polyethylene Glycol 3350 17 GM PACKET PO SCH ×2 (08:02→12:17)
[2022-09-04] MEDS: Vancomycin 1,000 MG in NS 0.9% 250 ml 250 ML IVPB SCH ×2 (09:00→22:17)
[2022-09-04] MEDS ORDERED: Pancrelipase 5,000 units CAP G TUBE ONE (10:04)
[2022-09-04] MEDS: Saline FLUSH-CENTRAL 10 ML SYRINGE CENT\\PICC SCH (11:00)
[2022-09-04] MEDS ORDERED: Alteplase (CATHFLO) 2 MG VIAL IV ONE (11:22)
[2022-09-04] MEDS ORDERED: Sodium Bicarb 650 mg (ANTACID) TAB G TUBE SCH (11:30)
[2022-09-04] MEDS: Acetaminophen IV 1 GM/100ML 1,000 MG/100 ML BAG IV PRN (12:04)
[2022-09-04] MEDS: methylPREDNISolone SOD SUCC 40 mg/ml 1 ml VIAL IV SCH (12:45)
[2022-09-04] MEDS: Pantoprazole VIAL 40 MG VIAL IV SCH (13:53)
[2022-09-04] MEDS ORDERED: Vancomycin per Pharmacy 1 EA NOTE FOLLOW UP SCH (16:00)
[2022-09-04] MEDS: Valproic Acid LIQ 250 MG/5 ML UDC PEG TUBE SCH (20:05)
[2022-09-04] MEDS: Enoxaparin 40 MG/0.4 ML SYR SUBCUT SCH (21:21)
[2022-09-05] MEDS: Saline FLUSH-CENTRAL 10 ML SYRINGE CENT\\PICC SCH ×3 (00:13→22:54)
[2022-09-05] MEDS: Valproic Acid LIQ 250 MG/5 ML UDC PEG TUBE SCH ×4 (03:04→21:10)
[2022-09-05 05:29] LABS: ABS Eosinophils 0.1 10^3/ul (0-0.6); ABS Lymphocytes 1.5 10^3/ul (1.0-4.8); Eosinophil % 1.7 %; Hematocrit 28 % (42-52); Hemoglobin 9.2 g/dL (14.0-18.0); Lymphocyte % 19.4 %; Mean Corpuscular HGB Conc 33 g/dL (31-36); Mean Corpuscular Hemoglobin 32 pg (27-31); Mean Corpuscular Volume 98 fL (80-94); Mean Platelet Volume 7.5 fL (7.4-10.4); Platelet Count 278 10^3/uL (150-450); Red Blood Count 2.87 10^6 /uL (4.18-5.48); Red Cell Distribution Width 14 % (10-15); White Blood Count 7.7 10^3/uL (3.5-10.8)
[2022-09-05 06:22] LABS: C Reactive Protein 57.94 mg/L (<8.01); Calcium 7.7 mg/dL (8.6-10.3); Creatinine, Serum 0.65 mg/dL (0.67-1.17); Magnesium 2.3 mg/dL (1.9-2.7); Potassium 4.4 mmol/L (3.5-5.0); eGFR CKD-EPI 104.6 (>60)
[2022-09-05] MEDS: Multivitamins ADULT w/MIN LIQ 15 ML UDC PO SCH (07:43)
[2022-09-05] MEDS: methylPREDNISolone SOD SUCC 40 mg/ml 1 ml VIAL IV SCH (07:48)
[2022-09-05] MEDS: Fluoxetine LIQ 20 MG/5 ML UDC FEED TUBE SCH (07:49)
[2022-09-05] MEDS: Polyethylene Glycol 3350 17 GM PACKET PO SCH (07:51)
[2022-09-05] MEDS: Bacitracin OINTMENT TUBE TOPICAL SCH (07:51)
[2022-09-05] MEDS: Cefepime 1 GM in Dextrose 1 GM/50 ML BAG IV SCH ×2 (08:01→21:06)
[2022-09-05] MEDS ORDERED: Vancomycin Trough Check NOTE FOLLOW UP ONE (08:30)
[2022-09-05 09:11] LABS: Creatinine, Serum 0.67 mg/dL (0.67-1.17); Vancomycin Trough 14.7 mcg/mL; eGFR CKD-EPI 103.6 (>60)
[2022-09-05] MEDS: Vancomycin 1,000 MG in NS 0.9% 250 ml 250 ML IVPB SCH ×2 (09:13→21:10)
[2022-09-05] MEDS: Pantoprazole VIAL 40 MG VIAL IV SCH (14:26)
[2022-09-05] MEDS: Enoxaparin 40 MG/0.4 ML SYR SUBCUT SCH (21:08)
[2022-09-06] MEDS: Valproic Acid LIQ 250 MG/5 ML UDC PEG TUBE SCH ×4 (02:19→20:35)
[2022-09-06 05:29] LABS: ABS Eosinophils 0.1 10^3/ul (0-0.6); ABS Lymphocytes 1.4 10^3/ul (1.0-4.8); ABS Neutrophils 2.9 10^3/ul (1.5-7.7); Eosinophil % 2.7 %; Hematocrit 28 % (42-52); Lymphocyte % 25.8 %; Mean Corpuscular HGB Conc 33 g/dL (31-36); Mean Corpuscular Hemoglobin 32 pg (27-31); Mean Corpuscular Volume 99 fL (80-94); Mean Platelet Volume 7.5 fL (7.4-10.4); Platelet Count 321 10^3/uL (150-450); Red Cell Distribution Width 14 % (10-15); White Blood Count 5.5 10^3/uL (3.5-10.8)
[2022-09-06 06:07] LABS: C Reactive Protein 23.38 mg/L (<8.01); Calcium 7.8 mg/dL (8.6-10.3); Creatinine, Serum 0.62 mg/dL (0.67-1.17); Magnesium 2.2 mg/dL (1.9-2.7); Phosphorus 2.6 mg/dL (2.5-5.0); Potassium 4.2 mmol/L (3.5-5.0); eGFR CKD-EPI 106.1 (>60)
[2022-09-06] MEDS: Fluoxetine LIQ 20 MG/5 ML UDC FEED TUBE SCH (07:57)
[2022-09-06] MEDS: Bacitracin OINTMENT TUBE TOPICAL SCH (07:58)
[2022-09-06] MEDS: Multivitamins ADULT w/MIN LIQ 15 ML UDC PO SCH (07:58)
[2022-09-06] MEDS: Polyethylene Glycol 3350 17 GM PACKET PO SCH (07:59)
[2022-09-06] MEDS: Cefepime 1 GM in Dextrose 1 GM/50 ML BAG IV SCH (08:15)
[2022-09-06] MEDS: Vancomycin 1,000 MG in NS 0.9% 250 ml 250 ML IVPB SCH (09:28)
[2022-09-06] MEDS: Saline FLUSH-CENTRAL 10 ML SYRINGE CENT\\PICC SCH ×2 (09:48→22:05)
[2022-09-06] MEDS: Pantoprazole VIAL 40 MG VIAL IV SCH (14:21)
[2022-09-06] MEDS: Enoxaparin 40 MG/0.4 ML SYR SUBCUT SCH (20:24)
[2022-09-07] MEDS: Valproic Acid LIQ 250 MG/5 ML UDC PEG TUBE SCH ×4 (01:49→19:55)
[2022-09-07 05:49] LABS: ABS Eosinophils 0.2 10^3/ul (0-0.6); ABS Lymphocytes 1.3 10^3/ul (1.0-4.8); ABS Monocytes 0.9 10^3/ul (0-0.8); ABS Neutrophils 2.9 10^3/ul (1.5-7.7); Eosinophil % 3.4 %; Hematocrit 27 % (42-52); Hemoglobin 9.2 g/dL (14.0-18.0); Lymphocyte % 25.3 %; Mean Corpuscular HGB Conc 34 g/dL (31-36); Mean Corpuscular Hemoglobin 33 pg (27-31); Mean Corpuscular Volume 98 fL (80-94); Mean Platelet Volume 7.3 fL (7.4-10.4); Platelet Count 370 10^3/uL (150-450); Red Cell Distribution Width 14 % (10-15); White Blood Count 5.3 10^3/uL (3.5-10.8)
[2022-09-07 06:26] LABS: Creatinine, Serum 0.67 mg/dL (0.67-1.17); HDL Cholesterol 20.3 mg/dL; Potassium 4.3 mmol/L (3.5-5.0); eGFR CKD-EPI 103.6 (>60)
[2022-09-07] MEDS: Fluoxetine LIQ 20 MG/5 ML UDC FEED TUBE SCH (09:01)
[2022-09-07] MEDS: Multivitamins ADULT w/MIN LIQ 15 ML UDC PO SCH (09:02)
[2022-09-07] MEDS: Polyethylene Glycol 3350 17 GM PACKET PO SCH (09:06)
[2022-09-07] MEDS: Bacitracin OINTMENT TUBE TOPICAL SCH (09:06)
[2022-09-07] MEDS: Saline FLUSH-CENTRAL 10 ML SYRINGE CENT\\PICC SCH (10:46)
[2022-09-07 11:58] LABS: Rapid COVID-19 Molecular Undetected (Undetected)
[2022-09-07] MEDS: Pantoprazole VIAL 40 MG VIAL IV SCH (14:46)
[2022-09-07] MEDS: Enoxaparin 40 MG/0.4 ML SYR SUBCUT SCH (21:17)
[2022-09-08] MEDS: Valproic Acid LIQ 250 MG/5 ML UDC PEG TUBE SCH ×5 (01:42→21:07)
[2022-09-08] MEDS: Multivitamins ADULT w/MIN LIQ 15 ML UDC PO SCH (10:08)
[2022-09-08] MEDS: Fluoxetine LIQ 20 MG/5 ML UDC FEED TUBE SCH ×2 (10:09→12:26)
[2022-09-08] MEDS: Polyethylene Glycol 3350 17 GM PACKET PO SCH (10:12)
[2022-09-08] MEDS: Bacitracin OINTMENT TUBE TOPICAL SCH (10:12)
[2022-09-08] MEDS ORDERED: Acetaminophen IV 1 GM/100ML 1,000 MG/100 ML BAG IV ONE (12:03)
[2022-09-08] MEDS: Acetaminophen IV 1 GM/100ML 1,000 MG/100 ML BAG IV PRN (12:16)
[2022-09-08] MEDS: Pantoprazole VIAL 40 MG VIAL IV SCH (15:59)
[2022-09-08] MEDS: Enoxaparin 40 MG/0.4 ML SYR SUBCUT SCH (21:05)
[2022-09-09] MEDS: Valproic Acid LIQ 250 MG/5 ML UDC PEG TUBE SCH ×2 (03:43→09:49)
[2022-09-09] MEDS: Fluoxetine LIQ 20 MG/5 ML UDC FEED TUBE SCH (09:49)
[2022-09-09] MEDS: Multivitamins ADULT w/MIN LIQ 15 ML UDC PO SCH (09:49)
[2022-09-09] MEDS: Bacitracin OINTMENT TUBE TOPICAL SCH (10:03)
[2022-09-09] MEDS: Polyethylene Glycol 3350 17 GM PACKET PO SCH (10:04)
[2022-09-09 10:30] LABS: Rapid COVID-19 Molecular Undetected (Undetected)
[2022-09-09 11:21] VITALS: BP 107/65
== END 2022-09-09 14:50 | DRG 870 ==
LOC: ICU 13:38 → SUATTDRO 13:38 → MED 09-03 01:41
PROVIDERS: ADMIT Internal Medicine Critical Care Medicine; ATTEND Internal Medicine